=== PATIENT | male | born 1995 | race African-American/Black ===

== ENCOUNTER 2016-10-18 17:13 | Emergency (ER) | payer SELFPAY ==
[~2016-10-18] VITALS: Ht 195.6 cm; Wt 120.0 kg
[2016-10-18 17:15] VITALS: TEMP 97.4
[2016-10-18 18:05] VITALS: BP 136/74; PULSE 88
== END 2016-10-18 18:06 | disposition home or self-care (01) ==
LOC: COL.ER 17:13
DX: L05.01 Pilonidal cyst with abscess (principal); F17.210 Nicotine dependence, cigarettes, uncomplicated